=== PATIENT | male | born 1970 | race Caucasian/White ===

== ENCOUNTER 2018-11-08 07:13 | Day surgery (SDC) | payer OTHER ==
[~2018-11-08] VITALS: Ht 185.4 cm; Wt 84.6 kg
[2018-11-08] VITALS (15 sets, daily range): BP systolic 85–106; BP diastolic 48–69; PULSE 48–85; RESP 15–18; Ht 185.4 cm; Wt 84.6 kg
[~2018-11-08 07:13] MED LIST: ALFUZOSIN
--- NOTE | 2018-11-08 09:07 | PREAC ---
Date/Time of Note Date/Time of Note DATE: 11/08/18 TIME: 09:06 Anesthesia Eval and Record Evaluation Time Pre-Procedure Interview DATE: 11/08/18 TIME: 09:06 Age 48 Sex male NPO: 8 hrs Preoperative diagnosis gerd, screening Planned procedure egd, colonoscopy Past Medical History Past Medical History: Includes GI: GERD Surgery & Anesthesia Issues No known issue Meds Anticoagulation: No Beta Keysha within 24 hr: No Reason Beta Keysha not given: Pt. not on B-Keysha Reported Medications [Alfuzosin] No Conflict Check 11/08/18 Meds reviewed: Yes Allergies Coded Allergies: tamsulosin (Verified Allergy, Unknown, 11/08/18) Allergies Reviewed: Yes Labs/Studies Labs Reviewed: Reviewed by anesthesiologist test: N/A Pre-procedure Exam Airway: Adequate mouth opening, Adequate thyromental dist Mallampati: Mallampati II Teeth: Normal Lung: Normal Heart: Normal ASA Physical Status ASA physical status: 2 Emergency: None Planned Anesthetic General/MAC: Mask, MAC Pre-operative Attestations Prior to commencing anesthesia and surgery, the patient was re-evaluated, there was verification of: *The patient's identity *The results of appropriate recent lab work and preoperative vital signs *The above evaluation not changing prior to induction *Anesthetic plan, risk benefits, alternative and complications discussed with patient/family; questions answered; patient/family understands, accepts and wishes to proceed. IRENE BHATT Nov 08, 2018 09:07
[2018-11-08] MEDS ORDERED: PROPOFOL 40 ML ONE (09:35)
[2018-11-08] MEDS ORDERED: GLYCOPYRROLATE 0.4 MG INJ ONE (09:56)
[2018-11-08] MEDS ORDERED: LIDOCAINE 2% (SDV) 5 ML INJ ONE (09:56)
--- NOTE | 2018-11-09 07:26 | PAC ---
Date/Time of Note Date/Time of Note DATE: 11/09/18 TIME: 07:26 Post-Anesthesia Notes Post-Anesthesia Note Last documented vital signs Vital Signs Date Temp Pulse Resp B/P (MAP) Pulse Ox O2 O2 Flow FiO2 Time Delivery Rate 11/08/18 96.9 53 18 106/69 99 11:26 (81) 11/08/18 Room Air 11:17 11/08/18 4.0 10:35 Activity: WNL Respiratory function: WNL Cardiovascular function: WNL Mental status: Baseline Pain reasonably controlled: Yes Hydration appropriate: Yes Nausea/Vomiting absent: Yes IRENE BHATT Nov 09, 2018 07:26
== END 2018-11-08 12:10 | disposition home or self-care (01) ==
LOC: GIL 07:13
PROVIDERS: ATTEND Internal Medicine Gastroenterology
DX: Z12.11 Encounter for screening for malignant neoplasm of colon (principal); D12.4 Benign neoplasm of descending colon; D12.5 Benign neoplasm of sigmoid colon; K64.8 Other hemorrhoids; K57.30 Diverticulosis of large intestine without perforation or abscess without bleeding; K20.9 Esophagitis, unspecified
CPT/HCPCS: 43235; 45385; 88305; Z7610